=== PATIENT | male | born 1970 | race Caucasian/White ===

== ENCOUNTER 2016-08-12 11:04 | Emergency (ER) | payer OTHER ==
[2016-08-12 11:11] VITALS: TEMP 97.5
--- NOTE | 2016-08-12 11:21 | ED ---
Extremity Problem HPI - General Chief complaint: Extremity Problem,Nontraumatic Stated complaint: Knee pain Time Seen by Provider: 08/12/16 11:14 Source: patient, RN notes reviewed Mode of arrival: ambulatory Limitations: no limitations - History of Present Illness Initial comments: This is a 45-year-old male presents emergency Department chief complaint left knee pain. Patient states that to 3 weeks ago he was standing, twisted to move his states that he felt a pop in his knee. Patient states his been having ongoing pain. Patient states there is some swelling noted. Patient states he is still able to family but causes discomfort. Patient denies any redness, fever, chills. Patient also states that he's had a pimple or sore on the left side of his back. He states he's been digging at it using a spatula. Patient states he cannot see this. Patient states it hurts. - Related Data Previous Rx's Medication Instructions Recorded Acetaminophen-Codeine 300-30mg 1 tab PO Q4H PRN #20 tablet 08/12/16 [Tylenol #3] Cephalexin [Keflex] 500 mg PO Q6HR #28 cap 08/12/16 Allergies Allergy/AdvReac Type Severity Reaction Status Date / Time red dye AdvReac Nausea & Verified 08/12/16 11:38 Vomiting Review of Systems ROS Statement: Those systems with pertinent positive or pertinent negative responses have been documented in the HPI. ROS Other: All systems not noted in ROS Statement are negative. Past Medical History Past Medical History: No Reported History History of Any Multi-Drug Resistant Organisms: None Reported Past Surgical History: No Surgical Hx Reported Past Psychological History: No Psychological Hx Reported Smoking Status: Never smoker Past Alcohol Use History: None Reported Past Drug Use History: Marijuana General Exam Limitations: no limitations General appearance: alert, in no apparent distress Head exam: Present: atraumatic, normocephalic, normal inspection Respiratory exam: Present: normal lung sounds bilaterally. Absent: respiratory distress, wheezes, rales, rhonchi, stridor Cardiovascular Exam: Present: regular rate, normal rhythm, normal heart sounds. Absent: systolic murmur, diastolic murmur, rubs, gallop, clicks Extremities exam: Present: other (Left knee there is moderate swelling noted, no laxity pain over medial joint line, no warmth pedal pulses equal bilaterally patient has some discomfort with range of motion) Skin exam: Present: warm, dry, intact, normal color, other (Left mid back there is a half centimeter open wound). Absent: rash Course Vital Signs 08/12/16 11:09 Temperature 97.5 F L Pulse Rate 69 Respiratory 20 Rate Blood Pressure 132/69 O2 Sat by Pulse 99 Oximetry Medical Decision Making - Medical Decision Making 45-year-old male presented for left knee pain. Patient has early signs of arthritis history. I did explain to that he may have a meniscus injury. Patient referred to Dr. Marsh on-call. Return parameters were discussed. Disposition Clinical Impression: Back wound, Left knee injury Disposition: HOME SELF-CARE Condition: Stable Instructions: Knee Pain (ED) Additional Instructions: Please return to the Emergency Department if symptoms worsen or any other concerns. Prescriptions: Acetaminophen-Codeine 300-30mg [Tylenol #3] 1 tab PO Q4H PRN #20 tablet PRN Reason: pain Cephalexin [Keflex] 500 mg PO Q6HR #28 cap Time of Disposition: 12:00
--- NOTE | 2016-08-12 11:36 | XR ---
EXAMINATION TYPE: XR knee complete LT DATE OF EXAM ORDERED: 08/12/2016 11:31 AM HISTORY: Pain following trauma. COMPARISON: None. FINDINGS: There is mild peaking of the intercondylar spines. The joint spaces are well maintained. T here is no chondrocalcinosis. No fracture, dislocation or joint effusion is identified. IMPRESSION: 1. EARLIEST CHANGES OF OSTEOARTHRITIS. 2. NO ACUTE OSSEOUS LESION.
[2016-08-12 12:13] VITALS: BP 125/89; PULSE 79; RESP 16
== END 2016-08-12 12:13 | disposition home or self-care (01) ==
LOC: EC 11:04
DX: M25.562 Pain in left knee (principal); S31.000A Unspecified open wound of lower back and pelvis without penetration into retroperitoneum, initial encounter; X50.1XXA Overexertion from prolonged static or awkward postures, initial encounter; Z91.02 Food additives allergy status
CPT/HCPCS: 99283

== ENCOUNTER 2018-11-07 11:08 | Inpatient (IN) | payer OTHER ==
[2018-11-07] MEDS ORDERED: SODIUM CHLORIDE 0.9% 1,000 ML IV STA (11:09)
[2018-11-07] MEDS ORDERED: PANTOPRAZOLE 40 MG/10 ML VIAL IVP STA (11:09)
[2018-11-07] MEDS ORDERED: MORPHINE SULFATE 4 MG/ML SYRINGE IVP STA (11:19)
[2018-11-07 11:48] LABS: ALT 25 U/L (21-72); AST 28 U/L (17-59); Albumin 4.2 g/dL (3.5-5.0); Alcohol <10 mg/dL; Alkaline Phosphatase 57 U/L (38-126); Anion Gap 6 mmol/L; Blood Urea Nitrogen 16 mg/dL (9-20); Calcium 9.8 mg/dL (8.4-10.2); Carbon Dioxide 25 mmol/L (22-30); Chloride 110 mmol/L (98-107); Glucose 96 mg/dL (74-99); Lipase 85 U/L (23-300); Sodium 141 mmol/L (137-145); Total Bilirubin 1.2 mg/dL (0.2-1.3)
[2018-11-07 12:07] LABS: Potassium 4.9 mmol/L (3.5-5.1)
[2018-11-07 12:09] LABS: Basophils % (A) 0 %; Eosinophils # (A) 0.1 k/uL (0-0.7); Eosinophils % (A) 1 %; HGB 14.9 gm/dL (13.0-17.5); Lymphocytes # (A) 1.5 k/uL (1.0-4.8); Lymphocytes % (A) 13 %; MCH 30.8 pg (25.0-35.0); MCHC 33.8 g/dL (31.0-37.0); MCV 91.2 fL (80.0-100.0); Mean Platelet Volume 7.2; Monocytes # (A) 0.4 k/uL (0-1.0); Monocytes % (A) 3 %; Neutrophils # (A) 9.2 k/uL (1.3-7.7); Neutrophils % (A) 82 %; Platelet Count 211 k/uL (150-450); RBC 4.83 m/uL (4.30-5.90); RDW 12.2 % (11.5-15.5); WBC 11.2 k/uL (3.8-10.6)
--- NOTE | 2018-11-07 12:43 | CT ---
EXAMINATION TYPE: CT abdomen pelvis w con DATE OF EXAM: 11/07/2018 COMPARISON: None HISTORY: Generalized abdominal pain with nausea and vomiting. CT DLP: 719.4 mGycm Automated exposure control for dose reduction was used. TECHNIQUE: Helical acquisition of images from the lung bases through the pelvis have been completed. CONTRAST: Performed without Oral Contrast and with IV Contrast, patient injected with 100 mL of Isovue 300. FINDINGS: Evaluation of the abdomen somewhat limited by lack of fat, oral contrast LUNG BASES: No significant abnormality is appreciated. AORTA: No significant abnormality is appreciated. LIVER/GB: No significant abnormality is appreciated. PANCREAS: No significant abnormality is seen. SPLEEN: No significant abnormality is seen. ADRENALS: No significant abnormality is seen. KIDNEYS: No significant abnormality is seen. REPRODUCTIVE ORGANS: No significant abnormality is seen BOWEL: Small bowel wall folds are somewhat thickened. Appendix is not seen. FREE AIR: No Free Air visible. ASCITES: None visible. PELVIC ADENOPATHY: None visualized. RETROPERITONEAL ADENOPATHY: No Retroperitoneal Adenopathy visible. URINARY BLADDER: No significant abnormality is seen. OSSEOUS STRUCTURES: Degenerative disc changes are noted in the visualized lower lumbar spine, there is a spinal curvature present. Bone mineralization maintained. IMPRESSION: CORRELATE FOR POSSIBLE UNDERLYING ENTERITIS, FOLLOW-UP INDICATED. ADDITIONAL FINDINGS ABOVE.
--- NOTE | 2018-11-07 12:48 | XR ---
EXAMINATION TYPE: XR chest 2V DATE OF EXAM: 11/07/2018 COMPARISON: NONE HISTORY: Pain TECHNIQUE: Frontal and lateral views of the chest are obtained. FINDINGS: There is no focal air space opacity, pleural effusion, or pneumothorax seen. The cardiac silhouette size is within normal limits. The osseous structures are intact. Patient is rotated. The re are cardiac leads. IMPRESSION: No acute cardiopulmonary process.
[2018-11-07] MEDS ORDERED: MORPHINE SULFATE 2 MG/ML SYRINGE IVP STA (13:09)
--- NOTE | 2018-11-07 14:04 | ED ---
Abdominal Pain HPI - General Chief Complaint: Abdominal Pain Stated Complaint: Blood in vomit Time Seen by Provider: 11/07/18 11:08 Source: patient, EMS Mode of arrival: EMS - History of Present Illness Initial Comments: 48-year-old male past medical history of peptic ulcer disease presents today for chief complaint of hematemesis. Patient states for the past week hours he has had vomiting and diarrhea. He states this morning he began experiencing blood in his vomit. He states is a total of 4 episodes of emesis. Patient states is about half blood half vomit. Patient states it is bright red. Patient states this began at 8 AM. Patient denies any melena or hematochezia. Patient states he does have pain in the stomach, the left upper quadrant and epigastric region. Patient states it feels similar to in characteristic as when he 10 ulcer the past however intensified. Patient denies any fever, chills, night sweats, headache, dizziness, chest pain, shortness of breath. Patient states he takes Vicodin for chronic pain at home. He denies NSAID use, history of cirrhosis or alcohol abuse. Remaining review of systems negative, patient denies any recent numbness or tingling, dysuria or hematuria, constipation, headaches or visual changes, or any other complaints. Patient denies anticoagulation use. Upon arrival patient's blood pressure within normal limits, heart rate WNL. Pt appears uncomfortable, grabbing abdomen. - Related Data Home Medications Medication Instructions Recorded Confirmed HYDROcodone/APAP 10-325MG [[place] 1 tab PO QID 11/07/18 11/07/18 10-325] Multivitamins, Thera [Multivitamin 1 tab PO DAILY 11/07/18 11/07/18 (formulary)] Allergies Allergy/AdvReac Type Severity Reaction Status Date / Time red dye AdvReac Nausea & Verified 11/07/18 11:15 Vomiting Review of Systems ROS Statement: Those systems with pertinent positive or pertinent negative responses have been documented in the HPI. ROS Other: All systems not noted in ROS Statement are negative. Past Medical History Past Medical History: No Reported History History of Any Multi-Drug Resistant Organisms: None Reported Past Surgical History: No Surgical Hx Reported Past Psychological History: No Psychological Hx Reported Smoking Status: Never smoker Past Alcohol Use History: None Reported Past Drug Use History: Marijuana General Exam - General Exam Comments Initial Comments: General: The patient is awake and alert, appears uncomfortable. Eye: Pupils are equal, round and reactive to light, extra-ocular movements are intact. No nystagmus. There is normal conjunctiva bilaterally. No signs of icterus. Ears, nose, mouth and throat: There are moist mucous membranes and no oral lesions. Neck: The neck is supple, there is no tenderness or JVD. Cardiovascular: There is a regular rate and rhythm. No murmur, rub or gallop is appreciated. Respiratory: Lungs are clear to auscultation, respirations are non-labored, breath sounds are equal. No wheezes, stridor, rales, or rhonchi. Gastrointestinal: No noted diaphoresis, jaundice, pallor, protecting postures or squirming. Symmetrical pigmentation of abdomen without signs of inflammation. Umbilicus mildline, inverted without swelling. No dilated veins. No noted abdominal distention. No visible masses. No peristalsis, aortic pulsations, or ventral hernia. Bowel sounds audible in all 4 quadrants, unremarkable. No friction rubs or venous hums. No epigastic, hepatic or abdominal bruits. She diffusely tender of the upper abdomen to light and deep palpation. No rigidity, mild guarding. Liver edge, not palpable. Spleen edge, right and left kidney not palpable. Superior bladder margin non-tender. Special Testing: Negative [place], Rovsing, McBurney, Ko, cutaneous hyperesthesia. Iliopsoas and obturator tests negative bilaterally. Negative Heel Jar test. No CVA tenderness. No melena or farzaneh blood on digital rectal exam, normal tone. Negative madison turners or cullens sign Musculoskeletal: Normal ROM, no tenderness. Strength 5/5. Sensation intact. Pulses equal bilaterally 2+. Neurological: A&O x 3. CN II-XII intact, There are no obvious motor or sensory deficits. Coordination appears grossly intact. Speech is normal. Skin: Skin is warm and dry and no rashes or lesions are noted. Psychiatric: Cooperative. Course Vital Signs 11/07/18 11/07/18 11/07/18 11:11 13:21 13:30 Temperature 97.9 F Pulse Rate 79 55 L 58 L Respiratory 22 20 16 Rate Blood Pressure 117/104 106/89 106/86 O2 Sat by Pulse 98 99 99 Oximetry Medical Decision Making - Medical Decision Making 48-year-old female presenting today for chief complaint of hematemesis. Patient has known peptic ulcer disease. Patient states he has abdominal pain and left upper quadrant. He states is similar to when he has had peptic ulcer in the past however increased. CT revealed gastroenteritis. No free air. Chest x-ray within normal limits. Hemoglobin stable. Patient remained hemodynamically stable while in the emergency department. Patient provided pain medications. Patient had one episode of emesis no signs of hematemesis. Patient states he'll large amount of emesis earlier today, this time given patient's history of peptic ulcer disease with concern for upper GI bleed patient will be admitted for GI evaluation and possible endoscopy. Patient given Protonix in the emergency department.,Discussed the case attending provider Dr. Choi who recommended admission. He spoke with the admitting provider Dr. Velasquez who accepted admission. - Lab Data Result diagrams: 11/07/18 11:10 11/07/18 11:10 Lab Results 11/07/18 11/07/18 11/07/18 Range/Units 11:10 11:10 11:10 WBC 11.2 H (3.8-10.6) k/uL RBC 4.83 (4.30-5.90) m/uL Hgb 14.9 (13.0-17.5) gm/dL Hct 44.0 (39.0-53.0) % MCV 91.2 (80.0-100.0) fL MCH 30.8 (25.0-35.0) pg MCHC 33.8 (31.0-37.0) g/dL RDW 12.2 (11.5-15.5) % Plt Count 211 (150-450) k/uL Neutrophils % 82 % Lymphocytes % 13 % Monocytes % 3 % Eosinophils % 1 % Basophils % 0 % Neutrophils # 9.2 H (1.3-7.7) k/uL Lymphocytes # 1.5 (1.0-4.8) k/uL Monocytes # 0.4 (0-1.0) k/uL Eosinophils # 0.1 (0-0.7) k/uL Basophils # 0.0 (0-0.2) k/uL APTT 24.8 (22.0-30.0) sec Sodium 141 (137-145) mmol/L Potassium 4.9 (3.5-5.1) mmol/L Chloride 110 H (98-107) mmol/L Carbon Dioxide 25 (22-30) mmol/L Anion Gap 6 mmol/L BUN 16 (9-20) mg/dL Creatinine 0.97 (0.66-1.25) mg/dL Est GFR (CKD-EPI)AfAm >90 (>60 ml/min/1.73 sqM) Est GFR (CKD-EPI)NonAf >90 (>60 ml/min/1.73 sqM) Glucose 96 (74-99) mg/dL Calcium 9.8 (8.4-10.2) mg/dL Total Bilirubin 1.2 (0.2-1.3) mg/dL AST 28 (17-59) U/L ALT 25 (21-72) U/L Alkaline Phosphatase 57 (38-126) U/L Troponin I (0.000-0.034) ng/mL Total Protein 7.0 (6.3-8.2) g/dL Albumin 4.2 (3.5-5.0) g/dL Lipase 85 (23-300) U/L Stool Occult Blood (Negative) Serum Alcohol <10 mg/dL 11/07/18 11/07/18 Range/Units 11:10 14:05 WBC (3.8-10.6) k/uL RBC (4.30-5.90) m/uL Hgb (13.0-17.5) gm/dL Hct (39.0-53.0) % MCV (80.0-100.0) fL MCH (25.0-35.0) pg MCHC (31.0-37.0) g/dL RDW (11.5-15.5) % Plt Count (150-450) k/uL Neutrophils % % Lymphocytes % % Monocytes % % Eosinophils % % Basophils % % Neutrophils # (1.3-7.7) k/uL Lymphocytes # (1.0-4.8) k/uL Monocytes # (0-1.0) k/uL Eosinophils # (0-0.7) k/uL Basophils # (0-0.2) k/uL APTT (22.0-30.0) sec Sodium (137-145) mmol/L Potassium (3.5-5.1) mmol/L Chloride (98-107) mmol/L Carbon Dioxide (22-30) mmol/L Anion Gap mmol/L BUN (9-20) mg/dL Creatinine (0.66-1.25) mg/dL Est GFR (CKD-EPI)AfAm (>60 ml/min/1.73 sqM) Est GFR (CKD-EPI)NonAf (>60 ml/min/1.73 sqM) Glucose (74-99) mg/dL Calcium (8.4-10.2) mg/dL Total Bilirubin (0.2-1.3) mg/dL AST (17-59) U/L ALT (21-72) U/L Alkaline Phosphatase (38-126) U/L Troponin I <0.012 (0.000-0.034) ng/mL Total Protein (6.3-8.2) g/dL Albumin (3.5-5.0) g/dL Lipase (23-300) U/L Stool Occult Blood Negative (Negative) Serum Alcohol mg/dL Disposition Clinical Impression: Upper GI bleed, Gastroenteritis, History of peptic ulcer Disposition: ADMITTED IP TO THIS [facility] Condition: Stable Is patient prescribed a controlled substance at d/c from ED?: No Referrals: Tarun Velasquez MD [Primary Care Provider] - 1-2 days Time of Disposition: 14:54 Decision to Admit Reason: Admit from EC Decision Date: 11/07/18 Decision Time: 14:55
[2018-11-07] MEDS ORDERED: HYDROmorphone 0.5 MG/0.5 ML SYRINGE IVP STA (14:05)
[2018-11-07] MEDS ORDERED: ONDANSETRON 4 MG/2 ML VIAL IVP STA (14:25)
[2018-11-07] MEDS ORDERED: HYDROmorphone 0.5 MG/0.5 ML SYRINGE IVP PRN (14:55)
[2018-11-07] MEDS ORDERED: NALOXONE 0.4 MG/ML 1 ML VIAL IV PRN (14:55)
[2018-11-07] MEDS ORDERED: SODIUM CHLORIDE 0.9% 1,000 ML IV SCH (15:00)
[2018-11-07 19:46] VITALS: BP 111/65; PULSE 61; RESP 16; TEMP 99.2
[2018-11-08] MEDS ORDERED: PANTOPRAZOLE 40 MG/10 ML VIAL IV SCH (09:00)
--- NOTE | 2018-11-08 15:19 | HP ---
HISTORY AND PHYSICAL DATE OF SERVICE: 11/07/2018. CHIEF COMPLAINT: Nausea and vomiting with hematemesis. HISTORY OF PRESENT ILLNESS: This gentleman was admitted through the emergency room where he had a complaint of abdominal pain and hemoptysis. It was decided that he should be admitted. Review of systems cannot be obtained because he signed out before he was seen. Past medical history, family history, personal and social histories were unremarkable, otherwise. He is not known to be allergic to anything. It is not known if he was taking any medication. The remainder of his history is unobtainable because he signed out. PHYSICAL EXAMINATION: His blood pressure was 112/68, pulse 62, respirations 16 and he is afebrile. Examination could not be done because he signed out. He was admitted to the the hospital with diagnosis: Hematemesis. PLAN: Bed bedrest, frequent monitoring of his GI findings and then referred to Gastroenterology. MMODL / IJN: [id number] /
--- NOTE | 2018-11-08 23:40 | DS ---
DISCHARGE SUMMARY CHIEF COMPLAINT: Nausea, vomiting, and hematemesis. HISTORY OF PRESENT ILLNESS AND PHYSICAL EXAM: Details of this man's history and physical can be found in the initial workup. LABORATORY STUDIES: While he was in the hospital, he had laboratory studies, details of which can be found in the laboratory section of his chart. COURSE IN HOSPITAL: After admission, he was placed on bedrest, started on intravenous fluids and he would have been seen by Gastroenterology. He signed himself out AGAINST MEDICAL ADVICE later in the evening. FINAL DIAGNOSIS: Hematemesis. OPERATIONS: None. CONSULTATIONS: None. He is not improved. He signed out AGAINST MEDICAL ADVICE. MMODL / IJN: [id number] /
== END 2018-11-07 20:45 | disposition left against medical advice (07) | DRG 392 ==
LOC: EC 11:08 → 3NMEDONC 14:55 → OBSVTOIN 14:59 → 3NMEDONC 18:12
PROVIDERS: ADMIT Family Medicine; ATTEND Family Medicine
DX: K52.9 Noninfective gastroenteritis and colitis, unspecified (principal); Z79.891 Long term (current) use of opiate analgesic; Z87.11 Personal history of peptic ulcer disease; G89.29 Other chronic pain
CPT/HCPCS: 36415; 71046; 74177; 80053; 80320; 82272; 83690; 84484; 85025; 85730

== ENCOUNTER 2019-05-23 19:19 | Emergency (ER) | payer OTHER ==
[2019-05-23 19:30] VITALS: BP 132/85; PULSE 85; RESP 20; TEMP 98.6
--- NOTE | 2019-05-23 21:13 | XR ---
EXAMINATION TYPE: XR foot complete RT, XR ankle complete RT DATE OF EXAM: 05/23/2019 CLINICAL HISTORY: Kicking injury with pain. TECHNIQUE: Frontal, lateral and oblique images of the right ankle and foot are obtained. COMPARISON: None. FINDINGS: There is no acute fracture/dislocation evident in the right ankle. The ankle mortise appe ars within normal limits. Small to tiny superior and inferior calcaneal spurs. The overlying soft ti ssue appears unremarkable. There is no acute fracture or dislocation evident in the right foot. Accessory ossicles near cuboid bone. The joint spaces in the right foot are preserved. Overlying soft tissue is unremarkable. IMPRESSION: There is no acute fracture or dislocation in the right ankle or foot.
--- NOTE | 2019-05-23 21:20 | ED ---
Lower Extremity Injury HPI - General Chief Complaint: Extremity Injury, Lower Stated Complaint: Foot injury Time Seen by Provider: 05/23/19 20:21 Source: patient Mode of arrival: ambulatory Limitations: no limitations - History of Present Illness Initial Comments: 48-year-old male presented emergency center for chief complaint of right foot pain after kicking dog. Patient states the dog attempted to attack him. He states he kicked the dog. He states since he has had pain in his foot. Patient states this incident occurred today. Patient states it is painful on the top of his foot just distal to the ankle joint. Patient denies ankle pain. Denies ankle swelling numbness tingling or loss sensation. Patient is weightbearing upon arrival Denies any bruising. Patient denies any biting or punctures from the dog. Remaining review of system negative. - Related Data Home Medications Medication Instructions Recorded Confirmed HYDROcodone/APAP 10-325MG [[place] 1 tab PO QID 11/07/18 11/22/18 10-325] Allergies Allergy/AdvReac Type Severity Reaction Status Date / Time red dye AdvReac Nausea & Verified 05/23/19 19:30 Vomiting Review of Systems ROS Statement: Those systems with pertinent positive or pertinent negative responses have been documented in the HPI. ROS Other: All systems not noted in ROS Statement are negative. Past Medical History Past Medical History: No Reported History Additional Past Medical History / Comment(s): Gastric ulcer. WAS ADMITTED 11/07/18 FOR HEMATEMSIS LEFT AMA History of Any Multi-Drug Resistant Organisms: None Reported Past Surgical History: No Surgical Hx Reported Additional Past Surgical History / Comment(s): JAW WIRED YEARS AGO Past Anesthesia/Blood Transfusion Reactions: No Reported Reaction Past Psychological History: No Psychological Hx Reported Smoking Status: Former smoker - Past Family History Mother Family Medical History: No Reported History General Exam - General Exam Comments Initial Comments: General: The patient is awake and alert, in no distress, and does not appear acutely ill. Eye: Pupils are equal, round and reactive to light, extra-ocular movements are intact. No nystagmus. There is normal conjunctiva bilaterally. No signs of icterus. Cardiovascular: There is a regular rate and rhythm. No murmur, rub or gallop is appreciated. Respiratory: Lungs are clear to auscultation, respirations are non-labored, breath sounds are equal. No wheezes, stridor, rales, or rhonchi. Musculoskeletal: Upon gross inspection. Bilaterally there is no soft tissue swelling bruising noted no bruising on the plantar aspect. Patient is able to dorsiflex and plantarflex the right foot without difficulty equal comparison left foot. Patient has no limitation to range of motion at the ankles. The equal bilaterally. Patient does admit to some discomfort with plantar flexion. Patient is tender to palpation over the dorsum of the foot just distal to the ankle mortise. No punctures lacerations or abrasions noted. No foot drop. Patient is able to weight-bear. Sensation intact both proximal distal to injury site. +2 dorsalis pedis pulses bilaterally. Neurological: A&O x 3. CN II-XII intact grossly, There are no obvious motor or sensory deficits. Coordination appears grossly intact. Speech is normal. Skin: Skin is warm and dry and no rashes or lesions are noted. Psychiatric: Cooperative, appropriate mood & affect, normal judgment. Limitations: no limitations Course Vital Signs 05/23/19 19:27 Temperature 98.6 F Pulse Rate 85 Respiratory 20 Rate Blood Pressure 132/85 O2 Sat by Pulse 96 Oximetry Medical Decision Making - Medical Decision Making 48-year-old presented for right foot pain after kicking dog in self-defense. X- ray negative for fracture. Patient neurovascularly intact. Patient able to weight-bear. Pain just distal to the ankle mortise. At this time do feel patient is stable for discharge with use of crutches until primary care follow- up for comfort. If he has persistent recommended orthopedic follow-up. Patient verbalizes understanding. Discussed case with attending provider Dr Perez, patient discharged appearing well. Disposition Clinical Impression: Foot pain, Right foot pain Disposition: HOME SELF-CARE Condition: Good Instructions (If sedation given, give patient instructions): Foot Sprain (ED) Additional Instructions: Please use medication as discussed. Please follow-up with family doctor in the next 2 days, please use crutches for ambulation. Repeat XR if pain is persistent and seek orthopedic evaluation. Please return to emergency room if the symptoms increase or worsen or for any other concerns. Is patient prescribed a controlled substance at d/c from ED?: No Referrals: Tarun Velasquez MD [Primary Care Provider] - 1-2 days Time of Disposition: 21:18
== END 2019-05-23 21:40 | disposition home or self-care (01) ==
LOC: EC 19:19
DX: M79.671 Pain in right foot (principal); Z87.891 Personal history of nicotine dependence; Z79.891 Long term (current) use of opiate analgesic; Z79.899 Other long term (current) drug therapy; Z91.048 Other nonmedicinal substance allergy status
CPT/HCPCS: 99283

== ENCOUNTER → 2019-06-22 | Outpatient (CLI) | payer OTHER ==
--- NOTE | 2019-06-22 15:29 | CONS ---
CONSULTATION DATE OF SERVICE: 06/22/2019. A 48-year-old gentleman who has been evaluated in the [facility] for his multiple sleep problems. HISTORY OF PRESENT ILLNESS/SLEEP-WAKE EVALUATION: Patient has difficulties with falling asleep and has multiple awakenings from sleep. He usually goes to be around 10:30, 11 p.m. and sleeps until about 6 a.m. basically 7 days a week. No TV in bedroom. When he is falling asleep, he has discomfort in his legs, restless leg symptoms. Also, he may feel some back pain. During the night, he wakes up around 6 times with episodes of dry mouth, panic attack, and restless legs. He also moving his legs and twitching a lot. No history of hypnagogic hallucinations, sleep paralysis or cataplexy. In the morning, patient wakes up tired, has difficulties to pay attention, has problems with memory, concentration, irritability, depression and anxiety. He usually does not take any naps during the day. [place] Sleepiness Scale is 8. PAST MEDICAL HISTORY: Multiple back problems with degenerative disc level L1-L4 and S1, S2, history of fracture of the nose. MEDICATIONS: Morphine [id number] mg 3 times a day right and [id number] mg a day taken at bedtime. PAST SURGICAL HISTORY: Tonsillectomy. SOCIAL HISTORY: Positive for smoking cigarettes. Alcohol consumption none. FAMILY HISTORY: Hypertension, heart problems, stroke, restless legs, insomnia. REVIEW OF SYSTEMS: Difficulties to initiate sleep, multiple awakenings from sleep. Pain in the back. PHYSICAL EXAM: gentleman without distress, BP 118/56, HR 62, RR 16, height 5, 11, weight 171, body mass index 23.8, temperature 98.3, oxygen saturation at room air 96%. . OROPHARYNX: Low position of soft palate. Mallampati 3. Significant restriction of nasal breathing bilaterally. Possible nasal septum deviation. NECK: Supple, no JVD. Thyroid is not palpable. LUNGS: Clear to percussion and to auscultation. Good air exchange. No wheezing or rhonchi. HEART: S1, S2 regular. No murmurs, gallops, or rubs. ABDOMEN: Soft and nontender. Bowel sounds are present. No organomegaly appreciated. EXTREMITIES: No clubbing or cyanosis. [employer]OR: Awake, alert, and oriented X3. Cranial nerves 2 to 7 intact. There is no fasciculation or atrophy. noted. No focal deficits observed. IMPRESSION: 1. Difficulties to initiate sleep, insomnia secondary to pain in the back and anxiety. 2. Restless legs syndrome. 3. Multiple movements of the legs at night with twitching, possible periodic limb movements. 4. Low position of soft palate, Mallampati 3. Significant restriction of nasal breathing, multiple awakenings from sleep, possible obstructive sleep apnea- hypopnea syndrome. 5. Patient is on treatment with a morphine which may increase the risk for central sleep apnea. Subsequently could be the reason for awakenings. 6. History of significant back problem with a degenerated disc disease in the level of L1-L4 and S1, S2. 7. History of nasal fracture at teenager age with significant restriction of nasal breathing at the present time, possibly nasal septum deviation. 8. Status post tonsillectomy. PLAN: 1. Polysomnography for evaluation of patient's breathing during the sleep, also to check for periodic limb movements. 2. CPAP/BiPAP titration if sleep study confirms obstructive sleep apnea-hypopnea syndrome. 3. Preferable position during sleep on the side. 4. No driving if patient feels any sleepiness. 5. I will see patient for follow up visit to explain results of testing and following plan. Thank you very much for referring this patient for consultation. Sincerely, Alex Kaufman MD, PhD, FAASM Diplomat of [place] [employer] [place] [employer] [facility] [place] MMODL / IJN: [id number] /
== END | disposition home or self-care (01) ==
LOC: SLEEP 13:42
PROVIDERS: ATTEND Internal Medicine
DX: G47.01 Insomnia due to medical condition (principal); G47.61 Periodic limb movement disorder; F41.9 Anxiety disorder, unspecified; M54.9 Dorsalgia, unspecified; Z87.81 Personal history of (healed) traumatic fracture; Z98.890 Other specified postprocedural states
CPT/HCPCS: 99211

== ENCOUNTER 2020-03-23 06:50 | Emergency (ER) | payer OTHER ==
[2020-03-23 06:55] VITALS: BP 137/50; PULSE 64; RESP 18; TEMP 98.4
[2020-03-23] MEDS ORDERED: LIDOCAINE 1% INJ 10MG/ML (20 ML MDV) SQ ONE (07:11)
--- NOTE | 2020-03-23 07:14 | ED ---
Wound/Laceration HPI - General Chief Complaint: Wound/Laceration Stated Complaint: Right index finger laceration Time Seen by Provider: 03/23/20 06:56 Source: patient, RN notes reviewed, old records reviewed Mode of arrival: ambulatory Limitations: no limitations - History of Present Illness Initial Comments: Patient is a 49-year-old male presents raise resident with laceration to the right pointer finger that occurred last night around 7:00 PM. Patient reports he cut it with the edge of a knife. He reports that he was trying to stab a ball to pop it and only had his finger. He reports full range of motion of the finger. Patient states that he has had updated tetanus within the past 5 years. He denies any other significant complaints. - Related Data Home Medications Medication Instructions Recorded Confirmed HYDROcodone/APAP 10-325MG [[place] 1 tab PO QID 11/07/18 11/22/18 10-325] Allergies Allergy/AdvReac Type Severity Reaction Status Date / Time red dye AdvReac Nausea & Verified 03/23/20 06:54 Vomiting Review of Systems ROS Statement: Those systems with pertinent positive or pertinent negative responses have been documented in the HPI. ROS Other: All systems not noted in ROS Statement are negative. Past Medical History Past Medical History: No Reported History Additional Past Medical History / Comment(s): Gastric ulcer. WAS ADMITTED 11/07/18 FOR HEMATEMSIS LEFT AMA History of Any Multi-Drug Resistant Organisms: None Reported Past Surgical History: No Surgical Hx Reported Additional Past Surgical History / Comment(s): JAW WIRED YEARS AGO Past Anesthesia/Blood Transfusion Reactions: No Reported Reaction Past Psychological History: No Psychological Hx Reported Smoking Status: Light tobacco smoker Past Alcohol Use History: None Reported Past Drug Use History: Marijuana - Past Family History Mother Family Medical History: No Reported History General Exam - General Exam Comments Initial Comments: 49-year-old male. Alert and oriented 3. No significant distress. Limitations: no limitations General appearance: alert, in no apparent distress Head exam: Present: atraumatic, normocephalic, normal inspection Eye exam: Present: normal appearance, PERRL, EOMI. Absent: scleral icterus, conjunctival injection, periorbital swelling ENT exam: Present: normal exam, mucous membranes moist Neck exam: Present: normal inspection. Absent: tenderness, meningismus, lymphadenopathy Respiratory exam: Present: normal lung sounds bilaterally. Absent: respiratory distress, wheezes, rales, rhonchi, stridor Cardiovascular Exam: Present: regular rate, normal rhythm, normal heart sounds. Absent: systolic murmur, diastolic murmur, rubs, gallop, clicks GI/Abdominal exam: Present: soft, normal bowel sounds. Absent: distended, tenderness, guarding, rebound, rigid Extremities exam: Present: normal inspection, full ROM, normal capillary refill. Absent: tenderness, pedal edema, joint swelling, calf tenderness Right Forearm Wrist exam: Present: normal inspection, full ROM. Absent: ecchymosis Hand Wrist exam: Present: full ROM, laceration (Patient is a 3CM LINEAR laceration over the right middle pointer finger). Absent: normal inspection Neuro motor exam: Present: wrist extension intact, thumb opposition intact, thumb IP flexion intact, thumb adduction intact, fingers 2-5 abduction intact Back exam: Present: normal inspection Neurological exam: Present: alert, oriented X3, CN II-XII intact Psychiatric exam: Present: normal affect, normal mood Skin exam: Present: warm, dry Course Vital Signs 03/23/20 06:53 Temperature 98.4 F Pulse Rate 64 Respiratory 18 Rate Blood Pressure 137/50 O2 Sat by Pulse 96 Oximetry Procedures - Laceration Laceration #1 Size (cm): 2 Description: linear Depth: simple, single layer Anesthetic Used: lidocaine 1% Anesthesia Technique: local infiltration Amount (mls): 2 Pre-repair: wound explored Type of Sutures: nylon Size of Sutures: 5-0 Number of Sutures: 3 Technique: simple, interrupted Patient Tolerated Procedure: well, no complications Medical Decision Making - Medical Decision Making 49-year-old male presents to return today with laceration right pointer finger. Laceration was cleaned and closed with 3 sutures. Patient tolerated the procedure well. I discussed she can close follow-up. Disposition Clinical Impression: Finger laceration Disposition: HOME SELF-CARE Condition: Good Instructions (If sedation given, give patient instructions): Finger Laceration (ED) Additional Instructions: Please return to the emergency room in 8-10 days to have sutures removed. Please leave wound covered for the first 24-48 hours and then leave open to air after that time. Please use clean soap and water to clean the suture area to prevent scabbing over the top of your sutures. Please watch for any signs of infection which may include but not limited to increased pain, swelling, redness, fever or chills. Please return to the emergency room if any signs of infection do occur. Please return to the emergency room for any other concerns or complications. Is patient prescribed a controlled substance at d/c from ED?: No Referrals: Tarun Velasquez MD [Primary Care Provider] - 1-2 days Time of Disposition: 07:43
[2020-03-23] MEDS ORDERED: BACITRACIN OINT 1 EACH PACKET TOPICAL ONE (07:29)
== END 2020-03-23 07:50 | disposition home or self-care (01) ==
LOC: EC 06:50
DX: S61.210A Laceration without foreign body of right index finger without damage to nail, initial encounter (principal); F17.210 Nicotine dependence, cigarettes, uncomplicated; Z79.899 Other long term (current) drug therapy; Z91.048 Other nonmedicinal substance allergy status; W26.0XXA Contact with knife, initial encounter
CPT/HCPCS: 99283; 12001; J2001

== ENCOUNTER 2020-04-08 02:42 | Emergency (ER) | payer OTHER ==
[2020-04-08 02:48] VITALS: BP 124/82; PULSE 76; RESP 20; TEMP 99
--- NOTE | 2020-04-08 03:09 | XR ---
EXAMINATION TYPE: XR ankle complete LT DATE OF EXAM: 04/08/2020 COMPARISON: NONE HISTORY: Injury. Pain. TECHNIQUE: 3 views FINDINGS: Ankle mortise is anatomic. The ankle joint spaces are normal. There are small Achilles calc aneal spur. There is nondisplaced transverse fracture across the base of the fifth metatarsal. IMPRESSION: Nondisplaced fifth metatarsal fracture. Calcaneal spurring.
--- NOTE | 2020-04-08 03:10 | XR ---
EXAMINATION TYPE: XR foot complete LT DATE OF EXAM: 04/08/2020 COMPARISON: NONE HISTORY: Pain TECHNIQUE: 3 views FINDINGS: There is an acute nondisplaced transverse fracture across the base of the fifth metatarsal. The joint spaces are normal. Toes appear intact. There is a small Achilles calcaneal spur. IMPRESSION: Nondisplaced acute fracture fifth metatarsal.
[2020-04-08] MEDS ORDERED: IBUPROFEN 600 MG TAB PO STA (03:27)
[2020-04-08] MEDS ORDERED: HYDROcodone/APAP 10-325MG 1 EACH TAB PO ONE (03:27)
--- NOTE | 2020-04-08 03:29 | ED ---
Lower Extremity Injury HPI - General Chief Complaint: Extremity Injury, Lower Stated Complaint: LT ankle injury Source: patient Mode of arrival: wheelchair Limitations: no limitations - History of Present Illness Initial Comments: 49-year-old male patient presents to the emergency department today for evaluation of left lateral foot pain. Patient states that he was changing the bulb on his porch. Patient states when he stepped down onto his foot he rolled his ankle. Patient states he had immediate onset of pain to the left lateral foot. States over the course of a few hours the area became swollen and bruised. Patient states he has increased pain when bearing weight on the foot. Denies previous injury to the foot. States he did take [place] earlier today without relief of pain. Denies any other injuries. Patient denies any headache, neck pain, back pain, chest pain, shortness of breath, dizziness, weakness, abdominal pain, nausea, vomiting, or difficulties with bowel movements or urination. - Related Data Home Medications Medication Instructions Recorded Confirmed HYDROcodone/APAP 10-325MG [[place] 1 tab PO QID 11/07/18 11/22/18 10-325] Previous Rx's Medication Instructions Recorded RX: Ibuprofen [Motrin] 600 mg PO Q8HR PRN #30 tab 04/08/20 Allergies Allergy/AdvReac Type Severity Reaction Status Date / Time red dye AdvReac Nausea & Verified 04/08/20 02:48 Vomiting Review of Systems ROS Statement: Those systems with pertinent positive or pertinent negative responses have been documented in the HPI. ROS Other: All systems not noted in ROS Statement are negative. Past Medical History Past Medical History: No Reported History Additional Past Medical History / Comment(s): Gastric ulcer. WAS ADMITTED 11/07/18 FOR HEMATEMSIS LEFT AMA History of Any Multi-Drug Resistant Organisms: None Reported Past Surgical History: No Surgical Hx Reported Additional Past Surgical History / Comment(s): JAW WIRED YEARS AGO Past Anesthesia/Blood Transfusion Reactions: No Reported Reaction Past Psychological History: No Psychological Hx Reported Smoking Status: Light tobacco smoker Past Alcohol Use History: None Reported Past Drug Use History: Marijuana - Past Family History Mother Family Medical History: No Reported History General Exam Limitations: no limitations General appearance: alert, in no apparent distress, other Respiratory exam: Present: normal lung sounds bilaterally. Absent: respiratory distress, wheezes, rales, rhonchi, stridor Cardiovascular Exam: Present: regular rate, normal rhythm, normal heart sounds. Absent: systolic murmur, diastolic murmur, rubs, gallop, clicks Extremities exam: Present: full ROM, tenderness (Over the left fifth metatarsal), normal capillary refill, other (There is soft tissue swelling, ecchymosis noted over the left lateral foot. Skin is otherwise pink, warm, dry. Cap refills less than 3 seconds. Pedal pulses 2+ and equal bilaterally.). Absent: normal inspection, pedal edema, joint swelling, calf tenderness Neurological exam: Present: alert, oriented X3, CN II-XII intact Psychiatric exam: Present: normal affect, normal mood Skin exam: Present: warm, dry, intact, normal color. Absent: rash Course Vital Signs 04/08/20 02:44 Temperature 99 F Pulse Rate 76 Respiratory 20 Rate Blood Pressure 124/82 O2 Sat by Pulse 98 Oximetry Procedures - Orthopedic Splinting/Casting Injury #1 Side: left Lower Extremity Injury Location: short leg Lower Extremity Immobilizer: posterior splint, Cheng wrap Additional Comments: Foot well padded with web roll. Neurovascular status intact after splint application. Skin to the toes pink, warm, dry. Cap refills less than 3 seconds. Patient denies numbness or tingling. Medical Decision Making - Medical Decision Making 49-year-old male patient presents to the emergency department today for evaluation of left foot and ankle pain. Physical examination did reveal soft tissue swelling and ecchymosis noted over the left lateral foot. Neurovascular status was intact. X-rays were obtained and did reveal nondisplaced fracture at the base of the fifth metatarsal. Patient was placed in a posterior splint. Instructed to remain nonweightbearing. Instructed to follow-up with orthopedics for recheck as soon as possible. He is given prescription for ibuprofen and crutches. Return parameters were discussed in detail. He verbalizes understanding and agrees with this plan. - Radiology Data Radiology results: report reviewed, image reviewed 3 views of the left foot are obtained. Report was reviewed in its entirety. Impression by Dr. Howard shows nondisplaced acute fracture fifth metatarsal. Disposition Clinical Impression: Fracture of fifth metatarsal bone of left foot Disposition: HOME SELF-CARE Condition: Good Instructions (If sedation given, give patient instructions): Foot Fracture in Adults (ED), Splint Care (ED) Additional Instructions: Rest, ice, elevate the left foot. Apply ice 20 with a time at least 3-4 times per day. Do not bear any weight on the foot. Follow-up with direct care specialist for further evaluation as soon as possible, call in the morning for an appointment. Continue home medications for pain control. Add in ibuprofen. Return to the emergency department immediately for any new, worsening, or concerning symptoms. Prescriptions: RX: Ibuprofen [Motrin] 600 mg PO Q8HR PRN #30 tab PRN Reason: Pain Is patient prescribed a controlled substance at d/c from ED?: No Referrals: Tarun Velasquez MD [Primary Care Provider] - 1-2 days Xavi Marsh MD [STAFF PHYSICIAN] - 1-2 days Time of Disposition: 03:29
== END 2020-04-08 03:44 | disposition home or self-care (01) ==
LOC: EC 02:42
DX: S92.352A Displaced fracture of fifth metatarsal bone, left foot, initial encounter for closed fracture (principal); F17.200 Nicotine dependence, unspecified, uncomplicated; Z91.048 Other nonmedicinal substance allergy status; X50.1XXA Overexertion from prolonged static or awkward postures, initial encounter
CPT/HCPCS: 29515; 99283

== ENCOUNTER 2022-12-31 10:43 | Day surgery (SDC) | payer OTHER ==
[2022-12-28 16:04] VITALS: BMI 25.0
[~2022-12-31 10:43] MED LIST: LIDOCAINE 1% (10MG/ML) FOR IV START INTRADERMA PRN
[2022-12-31 12:04] VITALS: TEMP 97
[2022-12-31] MEDS: LACTATED RINGERS 1,000 ML IV SCH ×2 (12:09→12:17)
[2022-12-31] MEDS ORDERED: PROPOFOL 10 MG/ML 20 ML VIAL IV ONE (12:18)
--- NOTE | 2022-12-31 12:21 | P.GSHP ---
History of Present Illness H&P Date: 12/31/22 Chief Complaint: Positive colo guard test This is a 52-year-old male who presents today for colonoscopy. Patient has a recent positive colon guard test. She denies any GI symptoms. He's had no GI bleed. Past Medical History Past Medical History: Osteoarthritis (OA) Additional Past Medical History / Comment(s): Hx gastric ulcer many yrs ago. History of Any Multi-Drug Resistant Organisms: None Reported Past Surgical History: No Surgical Hx Reported Additional Past Surgical History / Comment(s): JAW WIRED CLOSED YEARS AGO. Past Anesthesia/Blood Transfusion Reactions: No Reported Reaction Past Psychological History: No Psychological Hx Reported Smoking Status: Former smoker, Light tobacco smoker Past Alcohol Use History: None Reported Additional Past Alcohol Use History / Comment(s): QUIT SMOKING 2011. Past Drug Use History: Marijuana Additional Drug Use History / Comment(s): MARIJUANA-USES OCCASIONALLY-INSTRUCTED TO REFRAIN FROM USE FOR AT LEAST 24 HOURS PRIOR TO PROCEDURE. - Past Family History Mother Family Medical History: Cancer Additional Family Medical History / Comment(s): Ovarian cancer. Father Family Medical History: Cancer Additional Family Medical History / Comment(s): Bone cancer. Medications and Allergies Home Medications Medication Instructions Recorded Confirmed Type Cholecalciferol [Vitamin D3 (25 25 mcg PO DAILY 12/28/22 12/28/22 History Mcg = 1000 Iu)] Gabapentin 300 mg PO HS 12/28/22 12/28/22 History Multivitamins, Thera [Multivitamin 1 tab PO DAILY 12/28/22 12/28/22 History (formulary)] oxyCODONE ER [OxyCONTIN] 15 mg PO TID 12/28/22 12/28/22 History Allergies Allergy/AdvReac Type Severity Reaction Status Date / Time red dye AdvReac Nausea & Verified 12/28/22 15:54 Vomiting Surgical - Exam Vital Signs Temp Pulse Resp BP Pulse Ox 97 F L 69 20 150/79 98 12/31/22 12:00 12/31/22 12:00 12/31/22 12:00 12/31/22 12:00 12/31/22 12:00 - General well developed, well nourished, no distress - Eyes PERRL - ENT normal pinna - Neck no masses - Respiratory normal expansion - Cardiovascular Rhythm: regular - Abdomen Abdomen: soft, non tender Assessment and Plan Assessment: Positive colon guard test. We'll perform colonoscopy
--- NOTE | 2022-12-31 12:34 | P.OP ---
Date of Procedure: 12/31/22 Preoperative Diagnosis: Positive colon guard test Postoperative Diagnosis: Normal colon Procedure(s) Performed: Colonoscopy Anesthesia: MAC Surgeon: Néstor Umana Pathology: none sent Condition: stable Disposition: PACU Description of Procedure: Patient's placed on the endoscopy table in the lateral position. He received IV sedation. Digital rectal exam performed. This revealed no abnormalities. The flexible colonoscope was then placed patient's anus and passed throughout the entire colon. The ileocecal valve was visualized. The cecum, ascending and transverse colon appeared normal. The descending and sigmoid colon appeared normal. Scope was brought back the rectum was normal. Scope withdrawn for patient. There were no polyps seen during the colonoscopy.
[2022-12-31 12:51] VITALS: BP 144/76; PULSE 72; RESP 16
== END 2022-12-31 13:11 | disposition home or self-care (01) ==
LOC: ORWHC2ENDO 10:43
PROVIDERS: ATTEND Surgery
DX: R19.4 Change in bowel habit (principal); M19.90 Unspecified osteoarthritis, unspecified site; Z87.11 Personal history of peptic ulcer disease; Z87.891 Personal history of nicotine dependence; Z98.890 Other specified postprocedural states; Z80.41 Family history of malignant neoplasm of ovary; Z80.8 Family history of malignant neoplasm of other organs or systems; Z79.899 Other long term (current) drug therapy
CPT/HCPCS: 45378; J2704